=== PATIENT | female | born 1965 | race Caucasian/White ===

== ENCOUNTER 2025-01-28 12:09 | Emergency (ER) | payer BC, SELFPAY ==
--- NOTE | ~2025-01-28 | XR_ITS ---
Clinical history:. General pain. Possible proximal patella fracture. EXAM:X-ray knee left minimum 4 views TECHNIQUE:4 images of the left knee were obtained. Comparisons:None available FINDINGS: Severe narrowing of the patellofemoral joint. Moderate to large suprapatellar effusion. Soft tissue swelling about the left knee. Moderate narrowing of the medial lateral compartment. Possible small loose body in the lateral compartment. No dislocation. Bones appear osteopenic. There are 3 less than 1 cm radiopaque densities about the superior pole of the patella. Differential includes avulsion fractures of indeterminate age, osteophytes or loose bodies. Correlate for point tenderness. Consider an MRI of the left knee for further assessment IMPRESSION: 1.There are 3 less than 1 cm radiopaque densities about the superior pole of the patella. Differential includes avulsion fractures of indeterminate age, osteophytes or loose bodies. Correlate for point tenderness. Consider an MRI of the left knee for further assessment 2. Severe narrowing of the patellofemoral joint. If symptoms persist or worsen, consider a short-term follow-up study or additional imaging for further assessment. Reviewed, dictated and finalized at location Q. IMPRESSION: 1.There are 3 less than 1 cm radiopaque densities about the superior pole of th e patella. Differential includes avulsion fractures of indeterminate age, osteo phytes or loose bodies. Correlate for point tenderness. Consider an MRI of the left knee for further assessment 2. Severe narrowing of the patellofemoral joint. If symptoms persist or worsen, consider a short-term follow-up study or additio nal imaging for further assessment.
[2025-01-28 12:20] VITALS: BP 136/87; PULSE 93; RESP 18; TEMP 36.5; O2SAT 98
--- NOTE | 2025-01-28 13:04 | ED.GENADULT ---
HPI - General Adult General Chief complaint: Extremity Injury, Lower Stated complaint: Left Knee Injury Time Seen by Provider: 01/28/25 13:00 Source: patient, RN notes reviewed and old records reviewed Mode of arrival: ambulatory Limitations: no limitations History of Present Illness HPI narrative: 59 year old female presents to [facility] care with complaints of left knee pain. Patient reports that in 2022 she fell and had fracture upper aspect of patella and wore knee brace for 8 weeks and did seem to get better. Patient reports that in October of this year she missed step and twisted her knee and has been having increased pain since then. Patient reports that she was seen at urgent care in October without x-ray and received steroid injection but continues to have pain and increased difficulty with ambulation, Patient reports that she has used Biofreeze to her left knee and taken Ibuprofen. MD complaint: left knee pain Onset (ago): month(s) (reinjury in October 2024 initially injury in 2022) Location: left (knee) and lower extremity Severity scale (1-10): 7 Quality: aching and constant Treatments prior to arrival: NSAID and other (Biofreeze) Related Data Home Medications ?Medication ?Instructions ?Recorded ?Confirmed ?Last Taken ?Type fenofibrate nanocrystallized 145 145 mg PO DAILY 01/28/25 Unknown History mg tablet glipizide 10 mg tablet 10 mg PO DAILY 01/28/25 Unknown History lisinopril 40 mg tablet 40 mg PO DAILY 01/28/25 Unknown History metformin 1,000 mg tablet 1,000 mg PO BID 01/28/25 Unknown History simvastatin 20 mg tablet 20 mg PO DAILY 01/28/25 Unknown History Allergies Allergy/AdvReac Type Severity Reaction Status Date / Time No Known Allergies Allergy Mild Verified 01/28/25 12:11 Review of Systems Review of Systems: CONSTITUTIONAL: Denies fever, chills, or sweats. EYES: Denies visual changes, redness, or discharge. ENT: Denies rhinorrhea, congestion, sore throat, or otalgia. CARDIOVASCULAR: Denies chest pain, palpitations, or edema. RESPIRATORY: Denies cough or dyspnea. GASTROINTESTINAL: Denies abdominal pain, nausea, vomiting, or diarrhea. GENITOURINARY: Denies dysuria or hematuria. SKIN: Denies rash or itching. MUSCULOSKELETAL: Denies back pain,positive for pain to the left knee anterior aspect of knee, or myalgia. NEUROLOGIC: Denies headache, numbness, or weakness. PSYCHIATRIC: Denies anxiety or depression. All systems reviewed & are unremarkable except as noted in HPI and below PMFSH Past Medical History Medical History (Updated 01/29/25 @ 10:22 by Lida Storey NP) Diabetes Hyperlipidemia Hypertension Social History Social History (Updated 01/29/25 @ 10:07 by Lida Storey NP) Smoking status: Never smoker Alcohol intake: current Alcohol use details: rare social Substance use type: does not use Gender identity (if verbalized by the patient): Female Comments At time of signature, agree with nursing past medical, surgical, social and family history. There is no relevant family history pertinent to the presenting complaint Exam Narrative: GENERAL: Well-appearing, well-nourished, and in no acute distress. HEAD: Normocephalic, atraumatic. EYES: PERRLA and EOMI. ENT: Nares clear, no rhinorrhea or epistaxis. Mucous membranes moist. NECK: Supple.no lymphadenopathy CHEST: Clear to auscultation. No respiratory distress.SAO2 98% on room air HEART: Regular rate and rhythm. No murmur heard. Normal peripheral pulses. ABDOMEN: Soft, nontender, nondistended, normal active bowel sounds. EXTREMITIES: Normal range of motion. No edema.Exception noted to pain to left knee increases with ambulation, tenderness to superior aspect of knee and anterior knee region,positive swelling noted, Patient reports injury in October twisting of knee with on going increase in pain since incident. strong pulses to left foot, no posterior knee pain or instability of knee. SKIN: Warm, dry, no rash. NEURO: No focal deficits. Alert and oriented x3. Course Course Emergency Course: Patient is aware of diagnosis, understands and agrees to treatment plan.? Anticipatory guidance given.? Patient agrees to follow-up as directed and is aware of reasons to seek care at the emergency department. Portions of this record may have been created with voice recognition software Level of Care: Express Care Visit Vital Signs Vital signs: Vital Signs Temperature 36.5 C 01/28/25 12:20 Pulse Rate 93 01/28/25 12:20 Respiratory Rate 18 01/28/25 12:20 Blood Pressure 136/87 01/28/25 12:20 Pulse Oximetry 98 01/28/25 12:20 Oxygen Delivery Room Air 01/28/25 12:20 Temperature 36.5 C 01/28/25 12:20 Pulse Rate 93 01/28/25 12:20 Respiratory Rate 18 01/28/25 12:20 Blood Pressure 136/87 01/28/25 12:20 Pulse Oximetry 98 01/28/25 12:20 Oxygen Delivery Room Air 01/28/25 12:20 Reviewed Medical Decision Making MDM Narrative Medical decision making narrative: Exam findings and imaging show no acute concerns or changes; patient is non-toxic appearing and is in no distress.? Patient is appropriate for outpatient treatment and follow-up Differential Diagnosis Differential Diagnosis: old patella fracture, joint effusion, osteoarthritis left knee, severe left patellar femoral joint narrowing, osteopenia Medical Records Medical records reviewed: Yes I reviewed the external patient's medical records. Vital Signs Vital Signs: Vital Signs Temperature 36.5 C 01/28/25 12:20 Pulse Rate 93 01/28/25 12:20 Respiratory Rate 18 01/28/25 12:20 Blood Pressure 136/87 01/28/25 12:20 Pulse Oximetry 98 01/28/25 12:20 Oxygen Delivery Room Air 01/28/25 12:20 Temperature 36.5 C 01/28/25 12:20 Pulse Rate 93 01/28/25 12:20 Respiratory Rate 18 01/28/25 12:20 Blood Pressure 136/87 01/28/25 12:20 Pulse Oximetry 98 01/28/25 12:20 Oxygen Delivery Room Air 01/28/25 12:20 reviewed Imaging Data Attestation: I personally reviewed and interpreted this imaging study as follows: My impression: severe narrowing of patellar femoral joint, suprapatellar joint effusion, narrowing joint mid lateral compartment, past avulsion fracture patellar superior pole, soft tissue swelling Radiologist's impression: [facility] [address] [place] [address] XRay Report Signed Patient: Latonia Montes : 1965 MR#: [id number] Age: 59 Acct:[id number] Loc: EXPBE ADM Date: 01/28/[address]: Ordering Physician: Lida Storey APRN Date of Service: 01/28/25 Procedure(s): XR knee LT min 4V Accession Number(s): [id number] cc: Lida StoreySyeda MOSES; UNKNOWN,DOCTOR~ Clinical history:. General pain. Possible proximal patella fracture. EXAM:X-ray knee left minimum 4 views TECHNIQUE:4 images of the left knee were obtained. Comparisons:None available FINDINGS: Severe narrowing of the patellofemoral joint. Moderate to large suprapatellar effusion. Soft tissue swelling about the left knee. Moderate narrowing of the medial lateral compartment. Possible small loose body in the lateral compartment. No dislocation. Bones appear osteopenic. There are 3 less than 1 cm radiopaque densities about the superior pole of the patella. Differential includes avulsion fractures of indeterminate age, osteophytes or loose bodies. Correlate for point tenderness. Consider an MRI of the left knee for further assessment IMPRESSION: 1.There are 3 less than 1 cm radiopaque densities about the superior pole of the patella. Differential includes avulsion fractures of indeterminate age, osteophytes or loose bodies. Correlate for point tenderness. Consider an MRI of the left knee for further assessment 2. Severe narrowing of the patellofemoral joint. If symptoms persist or worsen, consider a short-term follow-up study or additional imaging for further assessment. Reviewed, dictated and finalized at location Q. Please be advised this is a medical document. It is intended for [id number] communication. It is written in medical language and may contain unfamiliar abbreviations or verbiage. Medical documents are intended to carry relevant information, facts as evident, and the clinical opinion of the practitioner at the time of the encounter. This report may have been done utilizing a voice recognition system. Attempts have been made to correct errors. However, there may be uncorrected grammatical, spelling, and recognition errors present. The file time of this note does not necessarily represent the time of service. Dictated By: Evaristo Renteria MD 01/28/25 1323 Signed By: <Electronically signed by Evaristo Renteria MD in OV> Critical Care Time Critical Care Time Critical Care Time: No Discharge Plan Discharge Clinical Impression: Patellofemoral disorder of left knee Left knee pain Qualifiers: Chronicity: unspecified Qualified Code(s): M25.562 - Pain in left knee Joint effusion of knee Qualifiers: Laterality: left Qualified Code(s): M25.462 - Effusion, left knee Patient Disposition: Home Condition: Stable Instructions: Antibiotic Form, Patellofemoral Pain Syndrome (ED) Additional Instructions: Orthopedic splint as directed until seen by PCP or orthopedic Tylenol for lesser pain Naproxen take b.i.d. take with food Follow-up with primary care physician for orthopedic referral and further testing, per patient request Follow-up with PCP if further problems or concerns Ice to the area 20-30 minutes 4-6 times a day Elevate above heart If your symptoms persist, change or worsen significantly before you can contact your personal physician then please, without delay, go to the emergency department for further evaluation. Follow-up with PCP in 7-10 days or sooner if needed Follow up with PCP soon in regards to your blood pressure which is elevated above threshold for referral. Blood pressure above 120/80 may indicate pre-hypertension. 136/87 Patient Language: Citizen Of [place] Prescriptions: New naproxen 500 mg tablet,delayed release (DR/EC) 500 mg PO BID Qty: 30 0RF Rx Instructions: take with food No Action metformin 1,000 mg tablet 1,000 mg PO BID glipizide 10 mg tablet 10 mg PO DAILY simvastatin 20 mg tablet 20 mg PO DAILY lisinopril 40 mg tablet 40 mg PO DAILY fenofibrate nanocrystallized 145 mg tablet 145 mg PO DAILY Follow-up/Referrals: UNKNOWN,DOCTOR [Primary Care Provider] Time of Disposition: 13:40 Quality Har[place] Coma Scale Eyes: Open Verbal: Oriented and Alert Motor: Follows Commands Har[place] Coma Total Score: 15
== END 2025-01-28 13:54 | disposition home or self-care (01) ==
PROVIDERS: Emergency Provider Registered Nurse
DX: M22.2X2 Patellofemoral disorders, left knee (principal); M25.562 Pain in left knee; I10 Essential (primary) hypertension; E11.9 Type 2 diabetes mellitus without complications; Z79.84 Long term (current) use of oral hypoglycemic drugs; E78.5 Hyperlipidemia, unspecified
CPT/HCPCS: 73564; 99203; G0463